=== PATIENT | female | born 1935 | race Caucasian/White ===

== ENCOUNTER 2018-02-09 11:33 | Emergency (ER) | payer OTHER ==
[~2018-02-09] VITALS: Ht 157.5 cm; Wt 61.2 kg
[2018-02-09 11:40] VITALS: BP 216/102
--- NOTE | 2018-02-09 12:28 | NUR ---
82 YR OLD FEMALE BIBA, COMPLAINS OF L WRIST PAIN S/P MECHANICAL FALL DOWN 2 STEPS OF STAIRS WHILE AT HOME. pATIENT DENIES ANY LOC, N/V/D, SOB, CP AT THE MOMENT. PATIENT DENIES DIZZINESS OR BLURRED VISION PRIOR TO FALL. PATIENT HAS FULL ROM TO LEFT WRIST CMS INTACT. NO OBVIOUS DEFORMITY NOTED.
[2018-02-09] MEDS ORDERED: ASPIRIN 325 MG TAB PO ONE (15:10)
[2018-02-09 15:48] VITALS: BP 126/81
--- NOTE | 2018-02-09 15:48 | NUR ---
Patient discharged with v/s stable. Written and verbal after care instructions given and explained. Patient verbalized understanding. Ambulatory with steady gait. All questions addressed prior to discharge. Advised to follow up with PMD.
== END 2018-02-09 15:48 | disposition home or self-care (01) ==
LOC: MED 11:33
DX: S52.502A Unspecified fracture of the lower end of left radius, initial encounter for closed fracture (principal); I10 Essential (primary) hypertension; Z88.0 Allergy status to penicillin; W18.39XA Other fall on same level, initial encounter; Y93.89 Activity, other specified; Y92.89 Other specified places as the place of occurrence of the external cause; Y99.8 Other external cause status
CPT/HCPCS: 29125; 73110; 99284; Q0092